=== PATIENT | female | born 1980 | race Caucasian/White ===

== ENCOUNTER 2016-11-13 09:28 | Observation (INO) | payer BC ==
[2016-11-10 13:42] LABS: BASOPHILS 0.2 %; BASOPHILS ABSOLUTE 0.01 10/3/uL (0.0-0.16); EOSINOPHILS 2.9 %; EOSINOPHILS ABSOLUTE 0.17 10/3/uL (0.0-0.53); HEMATOCRIT 35.3 % (36.0-48.0); HEMOGLOBIN 11.8 g/dL (12.0-16.0); IMMATURE GRANULOCYTES 0.3 %; IMMATURE GRANULOCYTES ABSOLUTE 0.02 10/3/uL (0.0-0.11); LYMPHOCYTES ABSOLUTE 1.35 10/3/uL (0.67-4.30); MEAN CORPUS HGB CONC 33.4 g/dL (32.0-36.0); MEAN CORPUSCULAR HEMOGLOB 28.8 pg (26.0-34.0); MEAN CORPUSCULAR VOLUME 86.1 fL (80-100); MEAN PLATELET VOLUME 9.7 fL (9.2-13.0); MONOCYTES 6.8 %; NEUTROPHILS 66.8 %; NEUTROPHILS ABSOLUTE 3.92 10/3/uL (2.02-8.40); PLATELET COUNT 219 10/3/uL (150-400); RBC DISTRIBUTION WIDTH 15.1 % (12.0-16.0)
[2016-11-10 13:45] LABS: MANUAL DIFF NO %; WHITE BLOOD CELLS 5.9 10/3/uL (4.5-10.5)
[2016-11-10 13:47] LABS: BUN (BLOOD UREA NITROGEN) 8 MG/DL (6-23); CALCIUM, SERUM 8.8 MG/DL (8.5-10.4); CHLORIDE, SERUM 107 MMOL/L (96-112); CO2 (CARBON DIOXIDE) 30 MMOL/L (24-34); CREATININE 0.52 MG/DL (0.55-1.02); GFR AFRICAN AMERICAN 142 ML/MIN (>=60); GFR NON AFRICAN AMERICAN 123 ML/MIN (>=60); GLUCOSE, SERUM 97 MG/DL (60-99); POTASSIUM, SERUM 4.4 MMOL/L (3.5-5.3); SODIUM, SERUM 144 MMOL/L (135-148)
--- NOTE | ~2016-11-13 | OP ---
Record Of Operation [facility] [address] [place]. [address] NAME: JUVENTINO ALCARAZ : 80 STATUS : ADM IN PAT#: [id number] AGE: 36 ADM/REG DATE : 11/13/16 MR#: [id number] REPORT SERV DATE: 11/13/16 DICTATED BY: GM KUHN DATE: 11/13/16 REPORT STATUS : Draft TRANSCRIBED BY: MODBassem DATE: 11/13/16 DATE OF PROCEDURE: 11/13/2016 PREOPERATIVE DIAGNOSIS: Abnormal uterine bleeding, not responsive to hormonal therapy with a benign endometrial biopsy. POSTOPERATIVE DIAGNOSIS: Abnormal uterine bleeding, not responsive to hormonal therapy with a benign endometrial biopsy with a ventral hernia and adhesions into the hernia. PROCEDURE: 1. Laparoscopic hysterectomy with bilateral salpingectomy, CPT code 02457. 2. Lysis of adhesions, CPT code 82423. 3. Repair of ventral hernia, CPT code 15055. SURGEON: Gm Kuhn M.D. SOCIAL SERVICES ANALYST: Josie. ESTIMATED BLOOD LOSS: 50 mL. FLUIDS IN: 2100 mL of crystalloid. COMPLICATIONS: None. FINDINGS AND INDICATIONS: This is a 36-year-old female, who presents with abnormal uterine bleeding that has not been responsive to hormonal therapy. She had a preoperative endometrial biopsy that was read as benign. She is taken to the operating room for removal of the uterus. She has requested that the ovaries be left in situ. Both fallopian tubes were removed. The patient previously had a tubal ligation. She has also had a previous section and multiple adhesions on the anterior bladder as well as a ventral hernia. The omentum was in the hernia, which required extensive lysis of adhesions. The contents of the hernia were removed and the hernia was repaired. The uterus was removed intact, examined on the back table with no gross evidence of malignancy. Both ovaries appeared to be normal and were sutured to the pelvic sidewalls to prevent torsion. PROCEDURE IN DETAIL: The patient was taken to the operating room, where she was placed in supine position for administration of general anesthesia. She was then placed in dorsal lithotomy position and prepped and draped in usual sterile fashion. A ALDO uterine manipulator was placed through the uterine cervix and out the fundus, and a JOSIAS ring was sutured to the patient's cervix. Our attention was then turned towards the anterior abdominal wall where an incision was made approximately 25 cm above the pubic symphysis and taken down to the underlying layer of fascia. The fascia was grasped with two sutures of 0 Vicryl tented up, and entered sharply. The peritoneum was then tented up and entered sharply, and a laparoscopic trocar was placed under direct visualization. The abdominal cavity was insufflated with CO2. Two additional 8 mm trocars were placed, one additional 12 mm trocar was placed. The patient was then docked the laparoscopic robotic instrument and Record Of Operation [facility] [id number] [place]. [address] NAME: JUVENTINO ALCARAZ : 80 STATUS : ADM IN PAT#: [id number] AGE: 36 ADM/REG DATE : 11/13/16 MR#: [id number] REPORT SERV DATE: 11/13/16 DICTATED BY: GM KUHN DATE: 11/13/16 REPORT STATUS : Draft TRANSCRIBED BY: MODL DATE: 11/13/16 remainder of the procedure was performed via the da Robby. The above findings were noted. She was again noted to have multiple adhesions on the anterior abdominal wall with a ventral hernia. These adhesions were taken down with sharp dissection and cautery for hemostasis. Approximately 50% of the entire operative time was dedicated to taken down these adhesions. Once the adhesions were displaced, the uterus was easily visualized and the hysterectomy performed. The retroperitoneal spaces were opened via the round ligaments, which were grasped with bipolar cautery, cauterized and transected bilaterally. The uteroovarian ligaments were isolated, cauterized, and transected bilaterally. The uterine arteries were identified at their origin. Hemoclips placed to ensure long-term hemostasis. Both fallopian tubes were detached from the ovaries by transecting and cauterized the mesosalpinx. The fallopian tubes were left attached to the uterus bilaterally. The uterine arteries were then skeletonized at the level of the cervix, grasped with bipolar cautery, cauterized and transected bilaterally. Anteriorly, there were multiple adhesions from her previous section. These adhesions were taken down with sharp dissection. Ultimately, the bladder was also taken down to a level well below the cervix. The uterine arteries were again cauterized and transected bilaterally. The uterosacral cardinal and complexes were taken down using unipolar cautery. A circumferential incision was made around the cervix and vagina and the uterus. Cervix and both fallopian tubes were delivered through the vagina. The above findings noted. The vaginal cuff was then closed with a running stitch of #1 PDS V-Loc. The pelvis was irrigated with copious amounts of warm water. All pedicles were inspected and found to be hemostatic. Using a #1 PDS V-Loc, the ventral hernia was also repaired and both ovaries were sutured to the pelvic sidewall using 2-0 Vicryl. At the completion of the procedure, again all pedicles were inspected and found to be hemostatic. The laparoscopic instruments were removed. The gas was expelled from the abdomen. The initial incision was closed with 0 Vicryl at the fascia. The 12 mm port was also closed with 0 Vicryl at the fascia. The remainder of the skin sites were closed with 4 0 Vicryl at the skin and Dermabond was placed. Postprocedure, a cystoscopy was performed with excellent bilateral ureteral jets. No evidence of bladder defect. At the completion of the procedure, the anesthesia was reversed. The patient was extubated and brought to the recovery room in stable condition. CLARKE/MODL Gm Kuhn M.D. / [id number] CC: Ludwig Mirza Brittany Baxter
[~2016-11-13 09:28] MED LIST: ADDERALL20 MG PO; CYMBALTA60 PO; NORCO1 TA2 PO; PAXIL30 MG PO; PROAIR HFA INH; SYN88 PO
[2016-11-14] MEDS ORDERED: PCET PO (12:05)
[2016-11-14] MEDS ORDERED: COMP10B PO (12:05)
== END 2016-11-14 17:54 | disposition home or self-care (01) ==
LOC: SDC 09:28 → 4EA 19:39
PROVIDERS: Obstetrics & Gynecology Gynecologic Oncology
PROC: 0UNF4ZZ Release Cul-de-sac, Percutaneous Endoscopic Approach (ICD-10-PCS; 2016-11-13)
PROC: 0WQF4ZZ Repair Abdominal Wall, Percutaneous Endoscopic Approach (ICD-10-PCS; 2016-11-13)
PROC: 0UT94ZZ Resection of Uterus, Percutaneous Endoscopic Approach (ICD-10-PCS; principal; 2016-11-13 12:00)
PROC: 0UTC4ZZ Resection of Cervix, Percutaneous Endoscopic Approach (ICD-10-PCS; 2016-11-13 12:00)
PROC: 0UT24ZZ Resection of Bilateral Ovaries, Percutaneous Endoscopic Approach (ICD-10-PCS; 2016-11-13 12:00)
PROC: 0UT74ZZ Resection of Bilateral Fallopian Tubes, Percutaneous Endoscopic Approach (ICD-10-PCS; 2016-11-13 12:00)
DX: N80.0 Endometriosis of uterus (principal); K43.9 Ventral hernia without obstruction or gangrene; K66.0 Peritoneal adhesions (postprocedural) (postinfection); E03.9 Hypothyroidism, unspecified; J45.909 Unspecified asthma, uncomplicated; G47.33 Obstructive sleep apnea (adult) (pediatric); M79.7 Fibromyalgia; F31.9 Bipolar disorder, unspecified; F41.9 Anxiety disorder, unspecified; F98.8 Other specified behavioral and emotional disorders with onset usually occurring in childhood and adolescence; Z99.89 Dependence on other enabling machines and devices; Z98.890 Other specified postprocedural states; Z91.048 Other nonmedicinal substance allergy status; Z79.899 Other long term (current) drug therapy
CPT/HCPCS: 36415; 80048; 84703; 85025; 86850; 86900; 86901; 88307; 93005; A9270-GY; G0378; J0694; J1885; J2250; J2405; J2710; J2795; J3010

== ENCOUNTER 2016-11-22 05:27 | Emergency (ER) | payer BC ==
[~2016-11-22 05:27] MED LIST changes: +COMP10B PO; +PCET PO
[2016-11-22 05:52] LABS: BASOPHILS 0.4 %; BASOPHILS ABSOLUTE 0.03 10/3/uL (0.0-0.16); EOSINOPHILS 3.4 %; EOSINOPHILS ABSOLUTE 0.28 10/3/uL (0.0-0.53); HEMATOCRIT 35.5 % (36.0-48.0); HEMOGLOBIN 12.1 g/dL (12.0-16.0); IMMATURE GRANULOCYTES 0.7 %; IMMATURE GRANULOCYTES ABSOLUTE 0.06 10/3/uL (0.0-0.11); LYMPHOCYTES 22.6 %; LYMPHOCYTES ABSOLUTE 1.87 10/3/uL (0.67-4.30); MEAN CORPUS HGB CONC 34.1 g/dL (32.0-36.0); MEAN CORPUSCULAR HEMOGLOB 29.4 pg (26.0-34.0); MEAN CORPUSCULAR VOLUME 86.4 fL (80-100); MEAN PLATELET VOLUME 9.7 fL (9.2-13.0); MONOCYTES 6.4 %; MONOCYTES ABSOLUTE 0.53 10/3/uL (0.21-1.20); NEUTROPHILS 66.5 %; PLATELET COUNT 266 10/3/uL (150-400); RBC DISTRIBUTION WIDTH 14.7 % (12.0-16.0); RED CELL COUNT 4.11 10/6/uL (4.0-5.6)
[2016-11-22 05:53] LABS: ER CBC TAT 0 Hrs 09 Mins; MANUAL DIFF NO %; WHITE BLOOD CELLS 8.3 10/3/uL (4.5-10.5)
[2016-11-22 05:59] LABS: INTERNATIONAL NORMAL RATI 1.1 UNITS (-); PARTIAL THROMBO TIME 29.3 SEC (22.5-37.2); PROTIME (NOT ORD) 13.7 SEC (12.0-14.5)
[2016-11-22 06:02] LABS: D-DIMER QUANTITATIVE 1.67 ug/mLFEU (< 0.50)
[2016-11-22 06:13] LABS: BUN (BLOOD UREA NITROGEN) 10 MG/DL (6-23); CALCIUM, SERUM 8.8 MG/DL (8.5-10.4); CHEST PAIN PROFILE TAT 0 Hrs 29 Mins; CHLORIDE, SERUM 104 MMOL/L (96-112); CO2 (CARBON DIOXIDE) 26 MMOL/L (24-34); CREATININE 0.63 MG/DL (0.55-1.02); GFR AFRICAN AMERICAN 134 ML/MIN (>=60); GFR NON AFRICAN AMERICAN 115 ML/MIN (>=60); GLUCOSE, SERUM 132 MG/DL (60-99); POTASSIUM, SERUM 3.8 MMOL/L (3.5-5.3); SODIUM, SERUM 142 MMOL/L (135-148); TROPONIN I <0.02 NG/ML (<0.05)
== END 2016-11-22 11:15 | disposition home or self-care (01) ==
LOC: ER 05:27
PROVIDERS: Physician Assistant
DX: R06.00 Dyspnea, unspecified (principal); Z91.09 Other allergy status, other than to drugs and biological substances; Z79.899 Other long term (current) drug therapy
CPT/HCPCS: 71010; 71275; 80048; 83735; 84484; 85025; 85379; 85610; 85730; 93005; 99285; Q9967